=== PATIENT | male | born 1960 | race Caucasian/White ===

== ENCOUNTER 2019-06-05 16:14 | Emergency (ER) | payer MEDICAID, OTHER ==
[~2019-06-05 16:14] MED LIST: BENA40TA73 PO; CLON0.1T PO; OMEP20CA4 PO; OXYC30TA88 PO; PROM25TA14 PO
== END 2019-06-05 17:47 | disposition left against medical advice (07) ==
LOC: ER 16:15
DX: S59.909A Unspecified injury of unspecified elbow, initial encounter (principal); Z53.21 Procedure and treatment not carried out due to patient leaving prior to being seen by health care provider; X58.XXXA Exposure to other specified factors, initial encounter; Y93.89 Activity, other specified; Y92.89 Other specified places as the place of occurrence of the external cause; Y99.8 Other external cause status

== ENCOUNTER 2021-06-17 07:58 | Emergency (ER) | payer OTHER ==
[~2021-06-17] VITALS: Ht 180.3 cm; Wt 72.7 kg
[~2021-06-17 07:58] MED LIST changes: +OXYC30TA PO; -OXYC30TA88 PO
[2021-06-17 08:16] VITALS: BP 173/98
== END 2021-06-17 13:07 | disposition left against medical advice (07) ==
LOC: ER 07:59
DX: M25.511 Pain in right shoulder (principal); Z53.21 Procedure and treatment not carried out due to patient leaving prior to being seen by health care provider